=== PATIENT | female | born 1965 | race Caucasian/White ===

== ENCOUNTER 2019-04-12 00:34 | Emergency (ER) | payer BC, OTHER ==
[~2019-04-12] VITALS: Ht 165.1 cm; Wt 99.8 kg
--- OUTSIDE RECORDS SUMMARY | 2019-04-12 00:39 | XMS REPORT ---
Author Author DEXTER JUAN [employer] Address Unknown Phone Unavailable Care Team Providers Care Regional Branch Manager Name Role Phone DEXTER JUAN CP Unavailable Allergies No Known Allergies Problems Problem Type Condition Code Onset Dates Condition Status Problem Generalized anxiety disorder F41.1 Active Assessment Major depressive disorder, recurrent episode, moderate F33.1 Active Problem Major depressive disorder, recurrent episode, moderate F33.1 Active Assessment Generalized anxiety disorder F41.1 Active Medications No Known Medications Procedures Procedure Coding System Code Date Psychotherapy, patient &/family, 45 minutes, established patient CPT-4 43502 Aug 16, 2015 Results No Known Results Summary Purpose eClinicalWorks Submission
--- OUTSIDE RECORDS SUMMARY | 2019-04-12 00:39 | XMS REPORT ---
Author Author DEXTER JUAN [employer] Address Unknown Phone Unavailable Care Team Providers Care Sort Operations Supervisor Name Role Phone DEXTER JUAN CP Unavailable [...] patient &/family, 45 minutes, established patient CPT-4 64962 Sep 29, 2015 Results No Known Results Summary Purpose eClinicalWorks Submission
--- OUTSIDE RECORDS SUMMARY | 2019-04-12 00:39 | XMS REPORT ---
Author Author DEXTER JUAN [employer] Address Unknown Phone Unavailable Care Team Providers Care Electric Tool Repairer Name Role Phone DEXTER JUAN CP Unavailable Allergies No Known Allergies Problems Problem Type Condition ICD-9 Code Onset Dates Condition Status Problem Generalized anxiety disorder 300.02 Active Assessment Major depressive disorder, recurrent episode, moderate 296.32 Active Problem Major depressive disorder, recurrent episode, moderate 296.32 Active Assessment Generalized anxiety disorder 300.02 Active Medications No Known Medications Procedures Procedure Coding System Code Date Psychotherapy, patient &/family, 45 minutes, established patient CPT-4 97131 Jun 29, 2015 Results No Known Results Summary Purpose eClinicalWorks Submission
--- OUTSIDE RECORDS SUMMARY | 2019-04-12 00:39 | XMS REPORT ---
Author Author [facility]EXTER RAI [facility] Address [address] [place] [address] Care Team Providers Care Noise Tester Name Role Phone DEXTER RAI Unavailable PROBLEMS Type Condition ICD9-CM Code TIV55-RY Code Onset Dates Condition Status SNOMED Code Problem Allergic reaction caused by a drug T78.40XA Dec, 0 104821434 Problem Well woman exam with routine gynecological exam Z01.419 Apr, 0 077977057604646 Problem Migraine headache G43.909 0 75567448 Problem Major depressive disorder, recurrent episode, moderate F33.1 Active 252670108 Problem Chronic pain G89.29 Oct, 0 49528978 Problem Endometriosis of uterus 617.0 0 69663466 Problem Diaphragmatic hernia without mention of obstruction or gangrene 553.3 0 43122755 Problem Rotator cuff tendonitis 726.10 Jul, 0 712822163 Problem Generalized anxiety disorder F41.1 Active 277796791 Problem Vaginal itching 698.1 Dec, 0 58494773 Problem Myalgia and myositis, unspecified 729.1 0 14247594 Problem Well woman exam with routine gynecological exam V72.31 Apr, 0 443274116289386 Problem Migraine headache 346.90 0 19811020 Problem Chronic pain 338.29 Oct, 0 41076785 Problem Fibromyalgia 729.1 Oct, 0 529179605 Problem Chronic maxillary sinusitis 473.0 0 43965188 Problem Allergic reaction caused by a drug 995.27 Dec, 0 618662832 Problem Diaphragmatic hernia without mention of obstruction or gangrene K44.9 0 05764801 Problem Reactive depression (situational) F32.9 0 46513763 Problem Fibromyalgia M79.7 Oct, 0 019949163 Problem Hypothyroidism, unspecified type E03.9 Active 28742519 Problem Endometriosis of uterus N80.0 0 40433046 Problem Chronic maxillary sinusitis J32.0 0 42290916 Problem Rotator cuff tendonitis M75.80 24 Jul, 2013 0 680653759 Problem Myalgia and myositis, unspecified RPZ2397 0 34303733 Problem Reactive depression (situational) 300.4 0 16193908 Problem Vaginal itching N89.8 25 Dec, 2014 0 09484676 ALLERGIES No Information ENCOUNTERS Encounter Location Date Diagnosis [address] [address] Dec, Generalized anxiety disorder F41.1 and Hypothyroidism, unspecified type E03.9 [facility] [id number] [address] Dec, [facility] [id number] [place] [address] Sep, [facility] [id number] [place] [address] Sep, [facility] [id number] [place] [address] Sep, [facility] [id number] [place] [address] Sep, [facility] [id number] [place] [address] Sep, [facility] [id number] [place] [address] Aug, [facility] [id number] [place] [address] Mar, [facility] [id number] [place] [address] 14 Dec, 2015 Major depressive disorder, recurrent episode, moderate F33.1 and Generalized anxiety disorder F41.1 [facility] [id number] [address] 04 Nov, 2015 Major depressive disorder, recurrent episode, moderate F33.1 and Generalized anxiety disorder F41.1 [facility] [id number] [address] Sep, Major depressive disorder, recurrent episode, moderate F33.1 and Generalized anxiety disorder F41.1 [facility] [address], [place] [address] Aug, Major depressive disorder, recurrent episode, moderate F33.1 and Generalized anxiety disorder F41.1 [facility] [address], [place] [address] Jun, Major depressive disorder, recurrent episode, moderate 296.32 and Generalized anxiety disorder 300.02 [facility] [id number] [place] [address] Apr, Major depressive disorder, recurrent episode, moderate 296.32 and Generalized anxiety disorder 300.02 [facility] [address] [address] Jan, [facility] [address] [address] Jan, [facility] [address] [address] Dec, [facility] [address] [address] Dec, [facility] [address], [place] [address] Oct, [facility] [address] [address] Oct, [facility] [address], [place] [address] Aug, [facility] [address] [address] Aug, [facility] [address], [place] [address] Jul, [facility] [address] [address] 16 Jul, 2014 [facility] [address] [id number] [place] [address] Jun, [facility] [place] [facility] [address] [id number] [place] [address] Jun, [facility] [address] [id number] [place] [address] Jun, [facility] [place] [facility] [address] [id number] [place] [address] Jun, [facility] [place] [facility] [address] [id number] [place] [address] Apr, [facility] [place] [facility] [address] [id number] [place] [address] Apr, [facility] [place] [facility] [address] [id number] [place] [address] February, [facility] [place] [facility] [address] [id number] [place] [address] February, [facility] [place] [facility] [address] [id number] [place] [address] Jan, [facility] [place] [facility] [address] [id number] [place] [address] Jan, [facility] [place] [facility] [address] [id number] [place] [address] Jan, [facility] [place] [facility] [address] [id number] [place] [address] Nov, [facility] [place] [facility] [address] [id number] [place] [address] Nov, [facility] [place] [facility] [address] [id number] [place] [address] Nov, [facility] [place] [facility] [address] [id number] [place] [address] 14 Nov, 2013 [facility] [place] [facility] [address] [id number] [place] [address] 14 Oct, 2013 [facility] [place] [facility] [address] [id number] [place] [address] 14 Oct, 2013 [facility] [place] [facility] [address] [id number] [place] [address] 14 Oct, 2013 [facility] [place] [facility] [address] [id number] [place] [address] 14 Oct, 2013 [facility] [place] [facility] [address] [id number] [place] [address] 12 Sep, 2013 [facility] [place] [facility] [address] [id number] [place] [address] Sep, [facility] [place] [facility] [address] [id number] [place] [address] Sep, [facility] [place] [facility] [address] [id number] [place] [address] Sep, [facility] [place] [facility] [address] [id number] [place] [address] 14 Aug, 2013 [facility] [place] [facility] [address] [id number] [address] 14 Aug, 2013 [facility] [place] [facility] [address] [id number], [place] [address] Aug, [facility] [place] [facility] [address] [id number], [place] [address] Aug, [facility] [place] [facility] [address] [id number] [place] [address] Jul, [facility] [place] [facility] [address] [id number] [place] [address] Jul, [facility] [place] [facility] [address] [id number] [place] [address] Jun, [facility] [place] [facility] [address] [facility] [id number] [place] [address] Jun, [facility] [address] [facility] [id number] [place] [address] May, [facility] [address] [facility] [id number] [place] [address] Sep, IMMUNIZATIONS No Known Immunizations SOCIAL HISTORY Never Assessed REASON FOR VISIT PLAN OF CARE VITAL SIGNS MEDICATIONS Medication Instructions Dosage Frequency Start Date End Date Duration Status Meloxicam 15 MG Orally Once a day 1 tablet 24h Dec, 30 day(s) Active RESULTS No Results PROCEDURES No Known procedures INSTRUCTIONS MEDICATIONS ADMINISTERED No Known Medications MEDICAL (GENERAL) HISTORY Type Description Date Medical History Hypothyroidism Medical History fibromyalgia Medical History migraine headaches Medical History depression and anxiety Surgical History hysterectomy Surgical History appendectomy Surgical History shoulder replacement Hospitalization History childbirth only Hospitalization History Surgery(s) only
--- OUTSIDE RECORDS SUMMARY | 2019-04-12 00:39 | XMS REPORT ---
Author Author Migration, Doctor Organization [facility] Address Unknown Phone Unavailable Care Team Providers Care Voltmeter Operator Name Role Phone Migration, Doctor Unavailable Unavailable PROBLEMS Type Condition ICD9-CM Code LZC07-GU Code Onset Dates Condition Status SNOMED Code Problem Allergic reaction caused by a drug T78.40XA Dec, Active 190237318 Problem Well woman exam with routine gynecological exam Z01.419 Apr, Active 190619746198601 Problem Migraine headache G43.909 Active 66161599 Problem Major depressive disorder, recurrent episode, moderate F33.1 Active 085245157 Problem Chronic pain G89.29 Oct, Active 36820937 Problem Endometriosis of uterus 617.0 Active 90221453 Problem Diaphragmatic hernia without mention of obstruction or gangrene 553.3 Active 82429225 Problem Rotator cuff tendonitis 726.10 Jul, Active 807786686 Problem Generalized anxiety disorder F41.1 Active 741330557 Problem Vaginal itching 698.1 Dec, Active 55149338 Problem Myalgia and myositis, unspecified 729.1 Active 48224616 Problem Well woman exam with routine gynecological exam V72.31 Apr, Active 565705603760901 Problem Migraine headache 346.90 Active 03349388 Problem Chronic pain 338.29 Oct, Active 08448965 Problem Fibromyalgia 729.1 Oct, Active 171162749 Problem Chronic maxillary sinusitis 473.0 Active 72766846 Problem Allergic reaction caused by a drug 995.27 Dec, Active 676831829 Problem Diaphragmatic hernia without mention of obstruction or gangrene K44.9 Active 62705367 Problem Reactive depression (situational) F32.9 Active 35467797 Problem Fibromyalgia M79.7 Oct, Active 610843066 Problem Hypothyroidism, unspecified type E03.9 Active 43115953 Problem Endometriosis of uterus N80.0 Active 80247181 Problem Chronic maxillary sinusitis J32.0 Active 62632711 Problem Rotator cuff tendonitis M75.80 Jul, Active 178431866 Problem Myalgia and myositis, unspecified MCC8222 Active 29020934 Problem Reactive depression (situational) 300.4 Active 90368640 Problem Vaginal itching N89.8 Dec, Active 58043490 ALLERGIES No Information ENCOUNTERS Encounter Location Date Diagnosis [facility] [id number] [place] [address] Jan, Fibromyalgia M79.7 and Rotator cuff tendinitis, unspecified laterality M75.[address] [address] Jan, [address] [address] Dec, Generalized anxiety disorder F41.1 and Hypothyroidism, unspecified type E03.9 [facility] [id number] [place] [address] Dec, [facility] [id number] [place] [address] Sep, [facility] [id number] [place] [address] Sep, [facility] [id number] [place] [address] Sep, [facility] [id number] [place] [address] Sep, [facility] [id number] [place] [address] Sep, [facility] [id number] [place] [address] Aug, [facility] [id number] [place] [address] Mar, [facility] [id number] [place] [address] 14 Dec, 2015 Major depressive disorder, recurrent episode, moderate F33.1 and Generalized anxiety disorder F41.1 [facility] [address] [address] 04 Nov, 2015 Major depressive disorder, recurrent episode, moderate F33.1 and Generalized anxiety disorder F41.1 [facility] [address] [address] Sep, Major depressive disorder, recurrent episode, moderate F33.1 and Generalized anxiety disorder F41.1 [facility] [address] [place] [address] Aug, Major depressive disorder, recurrent episode, moderate F33.1 and Generalized anxiety disorder F41.1 [facility] [address] [place] [address] Jun, Major depressive disorder, recurrent episode, moderate 296.32 and Generalized anxiety disorder 300.02 [facility] [address] [address] Apr, Major depressive disorder, recurrent episode, moderate 296.32 and Generalized anxiety disorder 300.02 [facility] [address] [address] Jan, [facility] [id number] [place] [address] Jan, [facility] [address] [address] Dec, [facility] [address] [address] Dec, [facility] [address] [address] Oct, [facility] [id number] [place] [address] Oct, [facility] [address] [address] Aug, [facility] [id number] [place] [address] Aug, [facility] [place] [facility] [address] [id number] [place] [address] Jul, [facility] [place] [facility] [address] [id number] [place] [address] Jul, [facility] [place] [facility] [address] [id number] [place] [address] Jun, [facility] [place] [facility] [address] [id number] [place] [address] Jun, [facility] [place] [facility] [address] [id number] [place] [address] Jun, [facility] [place] [facility] [address] [id number] [place] [address] Jun, [facility] [place] [facility] [address] [id number] [place] [address] Apr, [facility] [place] [facility] [address] [id number] [place] [address] Apr, [facility] [place] [facility] [address] [id number] [place] [address] February, [facility] [place] [facility] [address] [id number] [place] [address] February, [facility] [place] [facility] [address] [id number] [place] [address] Jan, [facility] [place] [facility] [address] [id number] [address] Jan, [facility] [place] [facility] [address] [id number] [place] [address] Jan, [facility] [place] [facility] [address] [id number] [place] [address] Nov, [facility] [place] [facility] [address] [id number] [place] [address] Nov, [facility] [place] [facility] [address] [id number] [place] [address] 14 Nov, 2013 [facility] [address] [id number] [place] [address] 14 Nov, 2013 [facility] [place] [facility] [address] [id number] [place] [address] 14 Oct, 2013 [facility] [address] [id number] [place] [address] 14 Oct, 2013 [facility] [place] [facility] [address] [id number] [place] [address] 14 Oct, 2013 [facility] [address] [id number] [place] [address] 14 Oct, 2013 [facility] [place] [facility] [address] [id number] [place] [address] 12 Sep, 2013 [facility] [address] [id number] [place] [address] 12 Sep, 2013 [facility] [place] [facility] [address] [id number] [place] [address] 03 Sep, 2013 [facility] [place] [facility] [address] [id number] [place] [address] 03 Sep, 2013 [facility] [place] [facility] [address] [id number] [place] [address] 14 Aug, 2013 [facility] [place] [facility] [address] [id number] [place] [address] 14 Aug, 2013 [facility] [place] [facility] [address] [id number] [place] [address] 14 Aug, 2013 [facility] [place] [facility] [address] [id number] [place] [address] 14 Aug, 2013 [facility] [place] [facility] [address] [id number] [place] [address] Jul, [facility] [place] [facility] [address] [id number] [place] [address] Jul, [facility] [address] [facility] [id number] [place] [address] Jun, [facility] [address] [facility] [id number] [address] Jun, [facility] [address] [facility] [id number] [place] [address] May, [facility] [address] [facility] [id number] [address] Sep, IMMUNIZATIONS No Known Immunizations SOCIAL HISTORY Never Assessed REASON FOR VISIT [facility] PLAN OF CARE VITAL SIGNS MEDICATIONS Unknown Medications RESULTS No Results PROCEDURES No Known procedures INSTRUCTIONS MEDICATIONS ADMINISTERED No Known Medications MEDICAL (GENERAL) HISTORY Type Description Date Medical History Hypothyroidism Medical History fibromyalgia Medical History migraine headaches Medical History depression and anxiety Surgical History hysterectomy Surgical History appendectomy Surgical History shoulder replacement Hospitalization History childbirth only Hospitalization History Surgery(s) only
--- OUTSIDE RECORDS SUMMARY | 2019-04-12 00:39 | XMS REPORT ---
Author Author DEXTER JUAN [employer] Address Unknown Phone Unavailable Care Team Providers Care Assisted Living Care Manager Name Role Phone DEXTER JUAN CP [...] patient &/family, 45 minutes, established patient CPT-4 24573 Nov 17, 2015 Results No Known Results Summary Purpose eClinicalWorks Submission
--- OUTSIDE RECORDS SUMMARY | 2019-04-12 00:40 | XMS REPORT | Continuity of Care Document ---
Author Organization Unknown Address Unknown Allergies Active Description Code Type Severity Reaction Onset Reported/Identified Relationship to Patient Clinical Status Yes Levaquin Drug Allergy N/A N/A 07/09/2013 Yes Sulfa (Sulfonamide Antibiotics) Drug Allergy N/A N/A 07/09/2013 Medications There is no data. Problems Date Dx Coded Attending Type Code Diagnosis Diagnosed By 05/15/2013 [facility], DEXTER R 296.32 MO DEPRESSIVE RECURRENT MODERATE 05/15/2013 LAVELLE GONZALES APRN 296.32 MO DEPRESSIVE RECURRENT MODERATE 05/15/2013 [facility], DEXTER R 296.32 MO DEPRESSIVE RECURRENT MODERATE 05/15/2013 LAVELLE GONZALES APRN 296.32 MO DEPRESSIVE RECURRENT MODERATE 05/15/2013 [facility], DEXTER R 296.32 MO DEPRESSIVE RECURRENT MODERATE 05/15/2013 LAVELLE GONZALES APRN 296.32 MO DEPRESSIVE RECURRENT MODERATE 05/15/2013 [facility], DEXTER R 296.32 MO DEPRESSIVE RECURRENT MODERATE 05/15/2013 [facility], DEXTER R 296.32 MO DEPRESSIVE RECURRENT MODERATE 05/15/2013 [facility], DEXTER R 296.32 MO DEPRESSIVE RECURRENT MODERATE 05/15/2013 [facility], DEXTER R 296.32 MO DEPRESSIVE RECURRENT MODERATE 05/15/2013 [facility], DEXTER R 296.32 MO DEPRESSIVE RECURRENT MODERATE 07/09/2013 LAVELLE GONZALES APRN 300.02 AN GEN ANXIETY 07/09/2013 [facility], DEXTER R 300.02 AN GEN ANXIETY 07/09/2013 LAVELLE GONZALES APRN 300.02 AN GEN ANXIETY 07/09/2013 [facility], DEXTER R 300.02 AN GEN ANXIETY 07/09/2013 LAVELLE GONZALES APRN 300.02 AN GEN ANXIETY 07/09/2013 [facility], DEXTER R 300.02 AN GEN ANXIETY 07/09/2013 [facility], DEXTER R 300.02 AN GEN ANXIETY 07/09/2013 [facility], DEXTER May 300.02 AN GEN ANXIETY 07/09/2013 [facility], DEXTER May 300.02 AN GEN ANXIETY 07/09/2013 [facility], DEXTER May 300.02 AN GEN ANXIETY Procedures Code [place] [address] PSYTX PT&/FAMILY 45 MINUTES 07/02/2013 95079 PSYCH DIAG EVAL W/MED SRVCS 07/15/2013 06315 PSYTX PT&/FAMILY 45 MINUTES 08/13/2013 97958 PSYTX PT&/FAMILY 45 MINUTES 08/27/2013 95634 PSYTX PT&/FAMILY 45 MINUTES 09/24/2013 59181 PSYTX PT&/FAMILY 45 MINUTES 10/27/2013 20871 PSYTX PT&/FAMILY 45 MINUTES 12/09/2013 83431 PSYTX PT&/FAMILY 30 MINUTES 01/14/2014 17007 PSYTX PT&/FAMILY 45 MINUTES 04/28/2014 95411 PSYTX PT&/FAMILY 45 MINUTES 06/22/2014 82911 PSYTX PT&/FAMILY 45 MINUTES 07/29/2014 Results Test Result Range TSH w/ FREE T4 - 12/24/18 17:10 TSH 2.18 mIU/L NRG T4, FREE 1.2 ng/dL 0.8-1.8 Encounters ACCT No. Visit Date/Time Discharge Status Pt. Type Provider Facility Loc./Unit Complaint [id number] 02/25/2019 13:40:00 02/25/2019 23:59:59 [facility] Outpatient DEXTER RAI [facility] [id number] 12/24/2018 16:00:00 Document Registration [id number] 07/29/2014 13:04:00 07/29/2014 23:59:59 [id number] 06/22/2014 12:07:00 06/22/2014 23:59:59 [id number] 04/28/2014 10:06:00 04/28/2014 23:59:59 [facility] [id number] 01/13/2014 11:23:00 01/13/2014 23:59:59 [facility] DEXTER CONROY [id number] 12/08/2013 10:15:00 12/08/2013 23:59:59 [facility] DEXTER CONRO[facility] [id number] 10/27/2013 11:04:00 10/27/2013 23:59:59 [facility] Outpatient LAVELLE GONZALES APRN [id number] 09/24/2013 09:07:00 09/24/2013 23:59:59 [facility] DEXTER CONRO[facility] [id number] 08/27/2013 10:00:00 08/27/2013 23:59:59 [facility] LAVELLE GONZALES APRN [id number] 08/13/2013 09:12:00 08/13/2013 23:59:59 [facility] Outpatient DEXTER CONROY [id number] 07/09/2013 14:11:00 07/09/2013 23:59:59 [facility] Outpatient LAVELLE GONZALES APRN [id number] 07/02/2013 12:47:00 07/02/2013 23:59:59 [facility] DEXTER CONROY
[2019-04-12] MEDS ORDERED: KETOROLAC 60 MG/2 ML VIAL IM STA (00:59)
--- NOTE | 2019-04-12 01:17 | ED EENT ---
History of Present Illness General Chief Complaint: Dental Problems/Pain Stated Complaint: DENTAL PAIN Nursing Triage Note: PT COMPLAINING OF LEFT LOWER DENTAL PAIN THAT HAS BEEN GOING ON ABOUT 12 HOURS Source: patient Exam Limitations: no limitations History of Present Illness Date Seen by Provider: Apr 12, 2019 Time Seen by Provider: 00:50 Initial Comments 53-year-old female presents with dental pain. She reports thing on for about 12 hours. She has a crown over that tooth and states the pain is in the root. There is no swelling in the area. She has no trauma to the area. She has no other systemic complaints Allergies and Home Medications Allergies Coded Allergies: levofloxacin (Verified Allergy, Severe, 04/12/19) Uncoded Allergies: SULFA (Allergy, Severe, 04/12/19) Home Medications Naproxen 500 Mg Tablet, 500 MG PO BID Prescribed by: NANDO HANNON on 04/12/19 011 Tramadol HCl 50 Mg Tablet, 50 MG PO Q8H PRN for PAIN Prescribed by: NANDO HANNON on 04/12/19 011 Patient Home Medication List Home Medication List Reviewed: Yes Review of Systems Review of Systems Constitutional: No chills, No fever Eyes: No Symptoms Reported Ears: No Symptoms Reported Nose: no symptoms reported Mouth: see HPI Throat: no symptoms reported Respiratory: no symptoms reported Cardiovascular: no symptoms reported Gastrointestinal: no symptoms reported Past Zllzkxb-Ynjklu-Domuuy Hx Past Med/Social Hx: Reviewed Nursing Past Med/Soc Hx Patient Social History Alcohol Use: Denies Use Recreational Drug Use: No Smoking Status: Never a Smoker 2nd Hand Smoke Exposure: No Recent Foreign Travel: No Contact w/Someone Who Travel: No Recent Infectious Disease Expo: No Recent Hopitalizations: No Seasonal Allergies Seasonal Allergies: No Past Medical History Surgeries: No Respiratory: No Cardiac: No Neurological: No Genitourinary: No Gastrointestinal: No Musculoskeletal: No Endocrine: No HEENT: No Cancer: No Psychosocial: No Integumentary: No Blood Disorders: No Physical Exam Vital Signs Vital Signs - First Documented 04/12/19 00:40 Temp 97.6 Pulse 88 Resp 18 B/P (MAP) 138/76 (96) Pulse Ox 97 O2 Delivery Room Air Height, Weight, BMI Height: 5'5.00" Weight: 220lbs. oz. 99.266496fc; BMI Method:Stated General Appearance: WD/WN, no apparent distress Eyes: bilateral eye normal inspection Nose: normal inspection Mouth/Throat: dental tenderness (Left lower wisdom tooth, no surrounding erythema worse come swelling, no noticeable abscess the tooth in front of it is absent with the next tooth with severe dental angel); No maxillary swelling, No tongue swollen Cardiovascular: regular rate, rhythm, no edema Respiratory: chest non-tender, normal breath sounds, no respiratory distress Neurologic/Psychiatric: alert, oriented x 3 Skin: normal color, warm/dry Progress/Results/Core Measures Results/Orders My Orders Orders - NANDO HANNON DO Ketorolac Injection (Toradol Injection) (04/12/19 00:59) Vital Signs/I&O 04/12/19 04/12/19 00:40 01:26 Temp 97.6 Pulse 88 88 Resp 18 18 B/P (MAP) 138/76 (96) 138/76 (96) Pulse Ox 97 97 O2 Delivery Room Air Room Air Blood Pressure Mean: 96 Departure Impression Primary Impression: Pain, dental Disposition: 01 HOME, SELF-CARE Condition: Stable Departure-Patient Inst. Referrals: [facility] (PCP) Primary Care Physician DEXTER RAI APRN (Family) Primary Care Physician Patient Instructions: Dental Pain (DC) Scripts Tramadol HCl (Tramadol HCl) 50 Mg Tablet 50 MG PO Q8H PRN for PAIN for 1 Day, #5 TAB 0 Refills Prov: NANDO HANNON DO 04/12/19 Naproxen (Naprosyn) 500 Mg Tablet 500 MG PO BID, #30 TAB 0 Refills Prov: NANDO HANNON DO 04/12/19 NANDO HANNON DO Apr 12, 2019 01:17
[2019-04-12] MEDS ORDERED: NAPR-1071 PO (01:19)
[2019-04-12] MEDS ORDERED: TRAM50TA2 PO (01:19)
[2019-04-12 01:26] VITALS: BP 138/76
== END 2019-04-12 01:20 | disposition home or self-care (01) ==
LOC: EDUNIT# 00:34 → ER FS 00:35
DX: K08.89 Other specified disorders of teeth and supporting structures (principal); Z88.1 Allergy status to other antibiotic agents; Z88.2 Allergy status to sulfonamides
CPT/HCPCS: 99284